=== PATIENT | male | born 1990 | race African-American/Black ===

== ENCOUNTER 2022-04-06 17:20 | Inpatient (IN) | payer OTHER ==
[2022-04-06] MEDS ORDERED: BENZOCAINE/MENTHOL (CHLORASEPTIC ) LOZENGE MM PRN (22:15)
[2022-04-06] MEDS ORDERED: MAG HYDROX/AL HYDROX/SIMETH 30 ML UNIT-DOSE CUP PO PRN (22:15)
[2022-04-06] MEDS ORDERED: MAGNESIUM HYDROX 2400MG/30ML ORAL SUSPENSION 30 ML CUP PO PRN (22:15)
[2022-04-06] MEDS ORDERED: ACETAMINOPHEN 325 MG TABLET (FP) PO PRN ×2 (22:15)
[2022-04-06] MEDS ORDERED: NICOTINE POLACRILEX 2 MG GUM BUC PRN (22:15)
[2022-04-06] MEDS ORDERED: IBUPROFEN 400 MG TABLET (FP) PO PRN (22:15)
[2022-04-06] MEDS ORDERED: P-EPHED 60MG/TRIPROLIDI 2.5MG TABLET PO PRN (22:15)
[2022-04-06] MEDS ORDERED: DICYCLOMINE HCL 10 MG CAPSULE PO PRN (22:15)
[2022-04-06] MEDS ORDERED: guaiFENesin 200 MG/10 ML 10 ML UNIT-DOSE CUPS PO PRN (22:15)
[2022-04-06] MEDS ORDERED: ONDANSETRON *ODT* 4 MG TABLET SL PRN (22:15)
[2022-04-06] MEDS ORDERED: BISMUTH SUBSALICYLATE 524 MG/30 ML PO PRN (22:15)
[2022-04-06] MEDS ORDERED: LOPERAMIDE HCL 2 MG CAPSULE PO PRN (22:15)
[2022-04-06] MEDS ORDERED: MAGNESIUM CITRATE 300 ML BOTTLE PO PRN (22:15)
[2022-04-06 22:54] VITALS: BMI 24.3
[2022-04-07] MEDS ORDERED: cloNIDine HCL 0.1 MG TABLET PO ONE (00:48)
[2022-04-07] MEDS: METHOCARBAMOL 500 MG TABLET PO PRN ×2 (09:12→17:40)
[2022-04-07] MEDS: hydrOXYzine PAMOATE 25 MG CAPSULE (FP) PO PRN ×3 (09:12→22:32)
[2022-04-07] MEDS: IBUPROFEN 600 MG TABLET (FP) PO PRN (09:12)
[2022-04-07] MEDS: PRENATAL VITAMINS W/ FOLIC ACID TABLET (FP) PO SCH (10:05)
[2022-04-07] MEDS: NICOTINE 14 MG/24 HOURS TOPICAL PATCH TD SCH (10:06)
[2022-04-07 10:41] LABS: HEMATOCRIT 47.7 % (35.4-49); HEMOGLOBIN 15.6 GM/dL (11.7-16.9); MCH 28.9 pg (25.7-33.7); MCHC 32.7 g/dl (32.0-35.9); MEAN CELL VOLUME 88.3 fl (80-96); MEAN PLT VOLUME 9.1 fl (7.5-11.1); PLATELET COUNT 108 10^3/uL (134-434); RDW 12.9 % (11.9-15.9); WHITE BLOOD COUNT 5.6 K/mm3 (4.0-10.0)
[2022-04-07 10:46] LABS: BLOOD UREA NITROGEN 12.6 mg/dL (7-18); CALCIUM 8.9 mg/dL (8.5-10.1)
[2022-04-07 10:47] LABS: ALBUMIN 3.5 g/dl (3.4-5.0)
[2022-04-07 10:49] LABS: CREATININE 0.7 mg/dL (0.55-1.3)
[2022-04-07 10:50] LABS: BILIRUBIN,TOTAL 1.6 mg/dL (0.2-1)
[2022-04-07 10:51] LABS: TOT PROT 7.1 g/dl (6.4-8.2)
[2022-04-07] MEDS ORDERED: chlordiazePOXIDE HCL 25 MG CAPSULE PO SCH (11:00)
[2022-04-07] MEDS ORDERED: LORazepam 1 MG TABLET PO PRN (12:51)
[2022-04-07] MEDS: cloNIDine HCL 0.1 MG TABLET PO SCH ×2 (13:02→22:32)
[2022-04-07] MEDS: LORazepam 2 MG TABLET PO SCH ×2 (17:41→22:32)
[2022-04-07] MEDS: MELATONIN 5 MG TABLETS PO SCH (22:33)
[2022-04-07] MEDS: THIAMINE HCL 100 MG TABLET (FP) PO SCH (22:33)
[2022-04-08] MEDS ORDERED: chlordiazePOXIDE HCL 10 MG CAPSULE PO PRN
[2022-04-08] MEDS ORDERED: chlordiazePOXIDE HCL 25 MG CAPSULE PO SCH (05:00)
[2022-04-08] MEDS: LORazepam 1 MG TABLET PO SCH ×4 (06:00→22:05)
[2022-04-08] MEDS: PRENATAL VITAMINS W/ FOLIC ACID TABLET (FP) PO SCH (10:35)
[2022-04-08] MEDS: cloNIDine HCL 0.1 MG TABLET PO SCH (10:35)
[2022-04-08] MEDS: NICOTINE 14 MG/24 HOURS TOPICAL PATCH TD SCH (10:37)
[2022-04-08] MEDS: MELATONIN 5 MG TABLETS PO SCH (22:04)
[2022-04-08] MEDS: THIAMINE HCL 100 MG TABLET (FP) PO SCH (22:04)
[2022-04-08] MEDS: hydrOXYzine PAMOATE 25 MG CAPSULE (FP) PO PRN (22:04)
[2022-04-08] MEDS: METHOCARBAMOL 500 MG TABLET PO PRN (22:05)
[2022-04-08] MEDS: NICOTINE 10 MG CARTRIDGE (INHALER) IH PRN (22:22)
[2022-04-09] MEDS ORDERED: chlordiazePOXIDE HCL 10 MG CAPSULE PO SCH (05:00)
[2022-04-09] MEDS: LORazepam 0.5 MG TABLET PO SCH ×2 (06:19→10:13)
[2022-04-09] MEDS: IBUPROFEN 600 MG TABLET (FP) PO PRN (06:23)
[2022-04-09 09:30] VITALS: BP 143/98; PULSE 66; RESP 16; TEMP 96.9
[2022-04-09] MEDS: PRENATAL VITAMINS W/ FOLIC ACID TABLET (FP) PO SCH (10:13)
[2022-04-09] MEDS: NICOTINE 14 MG/24 HOURS TOPICAL PATCH TD SCH (10:13)
[2022-04-09] MEDS: NICOTINE 10 MG CARTRIDGE (INHALER) IH PRN (10:13)
[2022-04-10] MEDS ORDERED: LORazepam 0.5 MG TABLET PO PRN
[2022-04-10] MEDS ORDERED: chlordiazePOXIDE HCL 10 MG CAPSULE PO SCH (05:00)
[2022-04-10] MEDS ORDERED: LORazepam 0.5 MG TABLET PO ONE (05:00)
[2022-04-11] MEDS ORDERED: chlordiazePOXIDE HCL 10 MG CAPSULE PO ONE (05:00)
== END 2022-04-09 12:46 | disposition home or self-care (01) | DRG 775 ==
LOC: YASAS 17:20 → Y3N 23:47
PROVIDERS: ADMIT Allergy & Immunology; ATTEND Family Medicine Addiction Medicine
PROC: HZ2ZZZZ Detoxification Services for Substance Abuse Treatment (ICD-10-PCS; principal; 2022-04-06)
DX: F10.230 Alcohol dependence with withdrawal, uncomplicated (principal); F17.210 Nicotine dependence, cigarettes, uncomplicated; F10.282 Alcohol dependence with alcohol-induced sleep disorder; K21.9 Gastro-esophageal reflux disease without esophagitis; Z28.310 Unvaccinated for COVID-19; Z28.9 Immunization not carried out for unspecified reason; Z91.010 Allergy to peanuts; Z91.018 Allergy to other foods
CPT/HCPCS: 36415; 80053; 85027; 86780; 87811; 93005; 93010; C9803-CS; U0003; U0005